=== PATIENT | male | born 1990 | race African-American/Black ===

== ENCOUNTER 2023-07-23 03:49 | Emergency (ER) | payer MEDICAID ==
[~2023-07-23] VITALS: Ht 180.3 cm; Wt 82.0 kg
[2023-07-23 04:12] VITALS: O2SAT 99
[2023-07-23] MEDS: ONDANSETRON 4MG ODT PO STA (05:19)
[2023-07-23 05:29] LABS: HEMOGLOBIN. 18.2 g/dL (14.0-18.0); MEAN CORPUSCULAR HEMOGLOBIN 26.7 pg (28.0-32.0); MEAN CORPUSCULAR HGB CONC 34.3 g/dL (31.0-37.0); MEAN PLATELET VOLUME 9.2 fl (7.4-10.4); PLATELET 309 x1000/uL (130-400); RED CELL DISTRIBUTION WIDTH 13.6 % (11.6-14.6); WHITE BLOOD COUNT 4.7 x1000/uL (4.5-11.0)
[2023-07-23 05:37] LABS: DIFFERENTIAL COMMENT 1
[2023-07-23 05:43] LABS: ALANINE AMINOTRANSFERASE 31 IU/L (10-49); ALBUMIN 5.5 g/dL (3.2-4.8); ASPARTATE AMINOTRANSFERASE 23 IU/L (<34); BILIRUBIN TOTAL 0.4 mg/dL (0.1-1.0); CALCIUM 9.6 mg/dL (8.7-10.4); CARBON DIOXIDE 25 mEq/L (21-32); CHLORIDE 105 mEq/L (98-107); CREATININE 1.1 mg/dL (0.6-1.3); GLUCOSE 110 mg/dL (70-105); POTASSIUM 3.3 mEq/L (3.5-5.1); PROTEIN TOTAL 9.3 g/dL (6.0-8.3); SODIUM 138 mEq/L (136-145); UREA NITROGEN BLOOD 14 mg/dL (9-23)
[2023-07-23 07:06] VITALS: TEMP 98
[2023-07-23] MEDS: SODIUM CHLORIDE 0.9% 1,000 ML IV ONE (07:15)
[2023-07-23 09:12] LABS: ATYPICAL LYMPHOCYTES 1; PLATELET ESTIMATE NORMAL
[2023-07-23 10:02] VITALS: BP 118/76; PULSE 77; RESP 10
== END 2023-07-23 10:40 | disposition home or self-care (01) ==
LOC: EDBD 03:49 → ER 03:49
DX: K52.9 Noninfective gastroenteritis and colitis, unspecified (principal); R11.2 Nausea with vomiting, unspecified; I10 Essential (primary) hypertension
CPT/HCPCS: 80053; 83690; 85025; 36415; 96360; 96361; 99285; Q0162; J7030; Z7610 ×2